=== PATIENT | female | born 1960 | race Caucasian/White ===

== ENCOUNTER 2017-09-19 08:07 | Emergency (ER) | payer BC ==
[2017-09-19 08:31] VITALS: BP 130/83
--- NOTE | 2017-09-19 08:44 | UC ---
Neck Pain HPI - HPI Summary HPI Summary: has had hx neck pain. last week she experienced increased pain L side neck after reading for extended period of time. no numbness or weakness in arms. tried a left over muscle relaxer x 1 last week with little relief. also took 2 OTC aleve last pm. she had a massage last week that helped a bit. no injury or fall - History of Current Complaint Chief Complaint: UCBackPain Stated Complaint: NECK PAIN Time Seen by Provider: 09/19/17 08:12 Hx Obtained From: Patient ?: No Onset/Duration Of Injury/Symptoms: Days Mechanism Of Injury: No Known Trauma Timing: Constant Onset/Duration: Gradual Onset Severity: Moderate Pain Intensity: 7 Location: Discrete At: - L side neck Aggravating Factors: Movement Alleviating Factors: Position Related History: Similar Episode/Dx As: - cervical disc prob - Allergies/Home Medications Allergies/Adverse Reactions: Allergies Allergy/AdvReac Type Severity Reaction Status Date / Time Sulfa (Sulfonamide Allergy Hives Verified 09/19/17 08:21 Antibiotics) Home Medications: Home Medications Cyclobenzaprine TAB* [Flexeril 10 MG TAB*] 09/19/17 [History] Estradiol [[place]] 09/19/17 [History] Naproxen Sodium [Aleve] 440 mg 09/19/17 [History Confirmed 09/19/17] Supplements 09/19/17 [History] PMH/Surg Hx/FS Hx/Imm Hx Previously Healthy: Yes - Surgical History Surgical History: Yes Surgery Procedure, Year, and Place: LOW BACK LAMINECTOMY L5-S1 - Family History Known Family History: Positive: None - Social History Occupation: Works From/At Home - [employer] Lives: With Family Alcohol Use: Occasionally Alcohol Amount: vodka Substance Use Type: None Smoking Status (MU): Never Smoked Tobacco Review Of Systems Constitutional: Positive: Negative Skin: Positive: Negative. Negative: Rash Respiratory: Positive: Negative Cardiovascular: Positive: Negative Musculoskeletal: Positive: Other: - neck pain Neurological: Positive: Negative Psychological: Positive: Negative All Other Systems Reviewed And Are Negative: Yes Physical Exam Triage Information Reviewed: Yes Appearance: Well-Appearing, No Pain Distress, Well-Nourished Vital Signs: Initial Vital Signs Temp 98.6 F 09/19/17 08:23 Pulse 100 09/19/17 08:23 Resp 16 09/19/17 08:23 BP 130/83 09/19/17 08:23 Pulse Ox 100 09/19/17 08:23 Vital Signs Reviewed: Yes Eye Exam: Normal Neck: Positive: No Lymphadenopathy, Tenderness @ - L lat neck and upper shoulder Respiratory Exam: Normal Cardiovascular Exam: Normal Musculoskeletal: Positive: ROM Limited @ - neck with flex/ext Neurological Exam: Normal Psychological Exam: Normal Skin Exam: Normal Skin: Negative: rashes Re-Evaluation - Re-Evaluation First Eval Change: Improved Neck Pain Course/Dx - Course Course Of Treatment: iStop Reference #: [id number] - Differential Dx/Diagnosis Differential Dx/HQI/PQRI: Sprain, Strain, Trauma, Other - degenerative disc disease Provider Diagnoses: cervicalgia Discharge - Sign-Out/Discharge Documenting (check all that apply): Discharge/Admit/Transfer - Discharge Plan Condition: Improved Disposition: HOME Prescriptions: Carisoprodol TAB* [Soma TAB*] 350 mg PO Q6H PRN #20 tab MDD 4 PRN Reason: Spasms - Neck Ibuprofen TAB* [Motrin TAB* 800 MG] 800 mg PO Q6H PRN #30 tab PRN Reason: Pain Patient Education Materials: Cervical Radiculopathy (ED) Referrals: Sohail Neff MD [Primary Care Provider] - 5 Days (if no better) Additional Instructions: take medication as prescribed. Do not take ibuprofen or aleve before 9pm tonight Do not drive or drink alcohol with SOMA muscle relaxer apply warm moist heat to area of pain 4 times a day - Billing Disposition and Condition Condition: IMPROVED Disposition: Home
[2017-09-19] MEDS ORDERED: Ketorolac INJ* 60 MG/2 ML VIAL IM ONE (08:49)
[2017-09-19] MEDS ORDERED: Carisoprodol TAB* 350 MG PO ONE (08:50)
== END 2017-09-19 09:54 | disposition home or self-care (01) ==
LOC: UCEAST 08:07
DX: M54.2 Cervicalgia (principal); Z88.2 Allergy status to sulfonamides
CPT/HCPCS: 96372; 99212; A9270-GY; G0463; J1885